=== PATIENT | female | born 1980 | race Caucasian/White ===

== ENCOUNTER 2024-02-23 18:59 | Emergency (ER) | payer MEDICAID, OTHER ==
[~2024-02-23] VITALS: Ht 152.4 cm; Wt 53.8 kg
[2024-02-23 20:16] VITALS: BP 119/75; PULSE 70; RESP 16; TEMP 98.8; O2SAT 99
== END 2024-02-23 20:12 | disposition home or self-care (01) ==
LOC: ER 19:00
DX: T67.5XXA Heat exhaustion, unspecified, initial encounter (principal); M62.838 Other muscle spasm; X58.XXXA Exposure to other specified factors, initial encounter; Y93.89 Activity, other specified; Y92.89 Other specified places as the place of occurrence of the external cause; Y99.8 Other external cause status
CPT/HCPCS: 99281